=== PATIENT | female | born 1990 | race Caucasian/White ===

== ENCOUNTER 2019-04-01 08:15 | Inpatient (IN) | payer OTHER, SELFPAY ==
[2019-04-01 07:40] VITALS: BMI 43.2
[2019-04-01] MEDS: Lactated Ringers 1,000 ML 50 ML IV ×3 (08:40→14:17)
[2019-04-01 08:55] LABS: Absolute Lymphocyte Count 1.51 X10^3/ul (0.83-4.51); Absolute Neutrophil Count 7.5 X10^3/uL (2.0-7.7); Basophil# 0.01 X10^3/uL; Basophil% 0.1 % (0-1); Eosinophil# 0.09 X10^3/uL; Eosinophils% 0.9 % (0-5); Hematocrit 36.4 % (37-47); Hemoglobin 12.6 g/dl (12.0-15.0); Lymphocyte # 1.51 X10^3/ul (4.0); Lymphocyte % 15.3 % (19-41); Mean Corp Hgb Conc 34.6 g/gl (32-36); Mean Corpuscular Volume 89.7 fL (81-99); Mean Platelet Vol. 10.3 fl (6.2-12.0); Monocyte# 0.66 X10^3/uL; Monocyte% 6.7 % (0-10); Neutrophil # 7.54 X10^3/uL (2.7-7.7); Neutrophil % 76.4 % (47-70); POSITIVE COUNT NO; POSITIVE DIFFERENTIAL NO; POSITIVE MORPHOLOGY NO; Platelet Count 180 K/mm3 (150-450); RBC Distribution Width CV 13.1 % (11.6-14.6); RBC Distribution Width SD 41.3 fl (35.1-43.9); Red Blood Count 4.06 M/mm3 (4.2-5.4); White Blood Count 9.9 K/mm3 (4.4-11.0)
[2019-04-01] MEDS: fentaNYL-bupivacaine (epidural) 100 ML BAG EPIDURAL ×2 (11:24→16:09)
[2019-04-01] MEDS: Ondansetron 4 MG/2 ML Vial IV (15:00)
[2019-04-01] MEDS: Oxytocin 30 units/NS 500 ml 30 UNITS/500 ML IV.SOLN 334 UNITS IV (17:05)
--- NOTE | 2019-04-01 17:33 | DCINST_ITS ---
Discharge Diet: No Restrictions Discharge Activity: Return to Normal Activity, May Drive, May Shower Return to work on:: 05/25/19 May shower in (days): 0 May resume sexual activity in: 6 weeks Call your doctor if your incision/area has: Sudden Increased Bleeding, Increased Pain/ Swelling, Foul Smelling Discharge Call your doctor if you observe: Fever of 101 or Higher, Inability to urinate, Inability to have a bowel movement, Using more than one pad per hour, Shortness of breath, Chest pain, Calf discomfort, Uncontrolled pain Cleanse incision/area with: Soap & Water Additional Instructions: If you experience any of the following, contact your healthcare provider. * Bleeding that soaks a pad every hour for 2 hours * Fever 100.4 or higher * Unrelieved incision or abdominal pain * Swelling, redness, discharge or bleeding from your incision or episiotomy site * Your incision begins to separate * Problems urinating (including inability to urinate or burning while urinating). * Visual changes * Severe headache * Flu-like symptoms * Pain or redness in one of both of your breasts * Pain, warmth, tenderness or swelling in your legs, especially the calf area * Frequent nausea and vomiting * Symptoms of depression or anxiety If you experience any of the following, call 911 or go to the nearest Emergency Room. * Chest pain * Problems breathing * Seizure activity * Partial or complete paralysis of a body part, slurred speech, weakness or drooping of the face, or a sudden inability to walk or hold your balance Allergies/Adverse Reactions: Allergies No Known Allergies Allergy (Verified 04/01/19 07:41) Medications to take at Discharge DiphenhydrAMINE [Benadryl] 25 mg PO PRN PRN 04/01/19 Ibuprofen [Motrin] 600 mg PO Q6H PRN PRN #30 tab 04/01/19 Pnv No.95/Ferrous Fum/Folic AC [ Vitamin Tablet] 1 ea PO DAILY 04/01/19 The following prescriptions were given: Ibuprofen [Motrin] 600 mg PO Q6H PRN PRN #30 tab PRN Reason: pain or cramping Prescription Printed Please Follow Up With: Carlota Kimball MD When: 6 weeks Test Results: Test results from this visit will be discussed in further detail at your follow- up appointment, if applicable. Proposed Discharge Date: 04/03/19
[2019-04-01] MEDS: Oxytocin 30 units/NS 500 ml 30 UNITS/500 ML IV.SOLN 167 UNITS IV (17:35)
--- NOTE | 2019-04-01 17:46 | PCM.OPRPT ---
Vaginal Delivery Maternal Presentation: Active Labor Presents at 39 + weeks in active labor Amniotic Membrane Rupture Type: Artificial Rupture of Membrane time: 0830 Amniotic Fluid Description: Clear Final IVETTE: 04/08/19 Final IVETTE Source: US <20 weeks Gestational age: 39 Weeks and 0 Days Date of Procedure: 04/01/19 Pre-Operative Diagnosis: Labor Post-Operative Diagnosis: Same Surgery/ Procedure Performed: Vacuum Assisted Vaginal Delivery Anesthesiologist: Pepe Martinez Type of Anesthesia: Epidural Description of Procedure: Patient presented at 4-5 cm dilation. AROM was performed with clear fluid noted. She progressed over 76 hours to fully dilated then pushed to deliver the vertex to +2 station. Due to maternal fatigue decision was made to assist the delivery by Kiwi vacuum assist. The Kiwi device was placed with care to avoid the fontanelles. Using gentle traction over two contractions the baby's vertex was delivered. The remainder of the delivery was unremarkable. Delayed cord clamping was employed. The baby's mouth was suctioned with a bulb suction. The cord was then clamped and cut and the baby placed on mom's chest. The placenta was delivered spontaneously intact with a centrally located 3VC. The uterus contracted well. Inspection revealed a small first degree posterior vaginal laceration which was repaired with 2-0. Vicryl. Presentation: Vertex Placental Delivery Description: Spontaneous Placenta Disposition: [facility] Percentage of Placenta Abruption: 0 Cord Vessel Description: 3 Vessels Nuchal Cord Compression: Without compression Cord Entanglement: None Drain: Huerta to straight drain Estimated Blood Loss: 300cc A gender: Male (1 minute): 9 (5 minute): 9 Episiotomy Description: None Laceration: Midline, Vaginal Extension/lac, 1st degree Medications given after delivery: IV Pitocin Complications: None
[2019-04-01] MEDS: Acetaminophen 500 MG Tablet 1000 MG PO (18:32)
[2019-04-01] MEDS: 0.9% Saline Lock 10 ML Syringe IV (18:39)
[2019-04-01 20:00] VITALS: BP 116/59; PULSE 70; RESP 18; TEMP 36.3
[2019-04-01 23:55] VITALS: BP 116/60; PULSE 80; RESP 18; TEMP 36.5
[2019-04-01] MEDS: Ibuprofen 600 MG Tablet PO (23:59)
[2019-04-02 04:00] VITALS: BP 112/52; PULSE 80; RESP 18; TEMP 36.3
[2019-04-02 06:18] LABS: Hemoglobin 10.5 g/dl (12.0-15.0); Mean Corp Hgb Conc 33.9 g/gl (32-36); Mean Corpuscular Hgb 31.1 pg (27.0-32.0); Mean Corpuscular Volume 91.7 fL (81-99); Mean Platelet Vol. 10.1 fl (6.2-12.0); Platelet Count 154 K/mm3 (150-450); RBC Distribution Width CV 12.9 % (11.6-14.6); RBC Distribution Width SD 41.1 fl (35.1-43.9); Red Blood Count 3.38 M/mm3 (4.2-5.4); Scan Indicated on CBC? Y/N NO; White Blood Count 11.4 K/mm3 (4.4-11.0)
--- NOTE | 2019-04-02 07:30 | NURSING ---
Pt unable to void x2 attempts since 6am. Straight cath pt for 1200cc clear yellow urine. pt tolerated well.
--- NOTE | 2019-04-02 08:01 | PN.OBGYN_ITS ---
Subjective: Some cramping with breast feeding and vaginal soreness. Bleeding light Objective: Afeb VSS Hgb appropriate - Physical Exam General: Alert, Oriented x3, Cooperative, No apparent distress Lungs: Clear to auscultation, Normal air movement Cardiovascular: Regular rate, Regular Rhythm Abdomen: Soft, Non Tender, Non-Distended, - - Fundus firm nontender Extremities: No edema Skin: No rashes Neurological: Neuro grossly intact Psych/Mental Status: Normal Affect Comment: Lochia appropriate Vital Signs Temp Pulse Resp BP 97.3 F L 80 18 112/52 L 04/02/19 04:00 04/02/19 04:00 04/02/19 04:00 04/02/19 04:00 Weight: 260 lb 2.327 oz Body Mass Index (BMI) 43.2 Intake and Output for Last 24 Hours 03/31/19 04/01/19 04/02/19 23:59 23:59 23:59 Intake Total 3774 / 3774 Output Total 1300 / 1300 1200 / 1200 Balance 2474 / 2474 -1200 / -1200 Laboratory Tests Past 24 Hrs 04/01/19 04/01/19 04/02/19 08:40 08:40 06:00 WBC 9.9 11.4 H RBC 4.06 L 3.38 L Hgb 12.6 10.5 L Hct 36.4 L 31.0 L MCV 89.7 91.7 MCH 31.0 31.1 MCHC 34.6 33.9 RDW 13.1 12.9 RDW Differential 41.3 41.1 Plt Count 180 154 MPV 10.3 10.1 Immature Gran % (Auto) 0.600 Neut % (Auto) 76.4 H Lymph % (Auto) 15.3 L [place] % (Auto) 6.7 Eos % (Auto) 0.9 Baso % (Auto) 0.1 Absolute Neuts (auto) 7.5 Absolute Lymphs (auto) 1.51 Total Counted Not Reportable Blood Type A POSITIVE Antibody Screen NEGATIVE Medical Necessity - Tobacco Use Smoking Status: Never smoker Assessment/Plan Doing well on PP day#1. Continue routine pp care
[2019-04-02] MEDS: Ibuprofen 600 MG Tablet PO ×3 (08:17→22:16)
[2019-04-02 08:20] VITALS: BP 107/52; PULSE 68; RESP 16; TEMP 36.2; O2SAT 97
[2019-04-02 11:02] VITALS: BP 101/62; PULSE 72; RESP 16; TEMP 36.1; O2SAT 97
--- NOTE | 2019-04-02 13:59 | NURSING ---
Patient requests at this time to attempt to void prior to catheter being placed.
--- NOTE | 2019-04-02 14:00 | NURSING ---
Patient reports no longer feeling the urge to go after this void. Requests to continue voiding trial for 2 hours before placing catheter[address] Dr. Paul office contacted.
[2019-04-02 15:49] VITALS: BP 120/60; PULSE 66; RESP 16; TEMP 36.1; O2SAT 97
[2019-04-02 19:43] VITALS: BP 99/53; PULSE 67; RESP 18; TEMP 36.8; O2SAT 97
[2019-04-02] MEDS: Senna/Docusate Sodium 1 Tablet PO (22:13)
[2019-04-03 02:43] VITALS: BP 105/45; PULSE 66; RESP 18; TEMP 36.6; O2SAT 95
[2019-04-03] MEDS: Ibuprofen 600 MG Tablet PO (05:28)
[2019-04-03 08:20] VITALS: BP 110/51; PULSE 68; RESP 18; TEMP 35.9; O2SAT 97
--- NOTE | 2019-04-03 08:23 | PCM.PN.OB ---
Subjective: Doing well on PP day#2. Breast feeding Bleeding light Objective: Afeb VSS - Physical Exam General: Alert, Oriented x3, Cooperative, No apparent distress Lungs: Clear to auscultation, Normal air movement Cardiovascular: Regular rate, Regular Rhythm Abdomen: Soft, Non Tender, Non-Distended, - - Fundus firm Extremities: No edema Neurological: Neuro grossly intact Psych/Mental Status: Normal Affect Comment: Lochia light Vital Signs Temp Pulse Resp BP Pulse Ox 97.8 F 66 18 105/45 L 95 04/03/19 02:43 04/03/19 02:43 04/03/19 02:43 04/03/19 02:43 04/03/19 02:43 Oxygen Delivery Method Room Air Weight: 260 lb 2.327 oz Body Mass Index (BMI) 43.2 Intake and Output for Last 24 Hours 04/01/19 04/02/19 04/03/19 23:59 23:59 23:59 Intake Total 3774 / 3774 600 / 600 Output Total 1300 / 1300 3350 / 3350 600 / 600 Balance 2474 / 2474 -2750 / -2750 -600 / -600 Medical Necessity - Tobacco Use Smoking Status: Never smoker Assessment/Plan Doing well on PP dya#2. Cleared for discharge home today. Home going instructions and warnings given.
--- NOTE | 2019-04-03 08:25 | PCM.DC.SUM ---
Discharge Date and Diagnosis Date of Admission: 04/01/19 Date of Discharge: 04/03/19 - Primary Discharge Diagnosis S/P VAcuum assisted vaginal delivery Hospital Course and Treatment Operations: None Procedures: - - Vacuum assisted vaginal delivery, epidural Summary of Care Provided: The patient is a 28 year old F [admitted at term in active labor. She progressed to FD then pushed for about 2 hours and then with vacuum assist delivered a live without complication. Post course unremarkable. Discharged home on PP day#2.] - Physical Exam Vital Signs Temp Pulse Resp BP Pulse Ox 97.8 F 66 18 105/45 L 95 04/03/19 02:43 04/03/19 02:43 04/03/19 02:43 04/03/19 02:43 04/03/19 02:43 Oxygen Delivery Method Room Air Weight: 260 lb 2.327 oz Body Mass Index (BMI) 43.2 Intake and Output for Last 24 Hours 04/01/19 04/02/19 04/03/19 23:59 23:59 23:59 Intake Total 3774 / 3774 600 / 600 Output Total 1300 / 1300 3350 / 3350 600 / 600 Balance 2474 / 2474 -2750 / -2750 -600 / -600 Discharge Diet: No Restrictions Discharge Activity: Return to Normal Activity, May Drive, May Shower Return to work on:: 05/25/19 May shower in (days): 0 May resume sexual activity in: 6 weeks Call your doctor if your incision/area has: Sudden Increased Bleeding, Increased Pain/ Swelling, Foul Smelling Discharge Call your doctor if you observe: Fever of 101 or Higher, Inability to urinate, Inability to have a bowel movement, Using more than one pad per hour, Shortness of breath, Chest pain, Calf discomfort, Uncontrolled pain Cleanse incision/area with: Soap & Water Home Medications: Medications to take at Discharge DiphenhydrAMINE [Benadryl] 25 mg PO PRN PRN 04/01/19 Ibuprofen [Motrin] 600 mg PO Q6H PRN PRN #30 tab 04/01/19 Pnv No.95/Ferrous Fum/Folic AC [ Vitamin Tablet] 1 ea PO DAILY 04/01/19 Following Prescrptions Were Given to Patient: Ibuprofen [Motrin] 600 mg PO Q6H PRN PRN #30 tab PRN Reason: pain or cramping Prescription Printed Please Follow Up With: Carlota Kimball MD When: 6 weeks Disposition: Home Minutes spent on discharge:: 15 Patient Condition:: Good Medical Necessity - Tobacco Use Smoking Status: Never smoker Meaningful Use Info Meaningful Use Diagnoses (Choose all that apply): None applicable
[2019-04-03 14:20] VITALS: BP 115/61; PULSE 60; RESP 20; TEMP 36.2; O2SAT 95
== END 2019-04-03 14:20 | disposition home or self-care (01) | DRG 807 ==
LOC: WPOUT 08:20
PROVIDERS: Admitting Provider Obstetrics & Gynecology; Referring Provider Obstetrics & Gynecology; Visit Provider Obstetrics & Gynecology
DX: O75.81 Maternal exhaustion complicating labor and delivery (principal); Z37.0 Single live birth; Z3A.39 39 weeks gestation of pregnancy; O70.0 First degree perineal laceration during delivery
CPT/HCPCS: 59050; 85025; 85027; 86850; 86900; 99218; J7120; A4216; G0378; J2405